=== PATIENT | male | born 1945 | race Caucasian/White ===

== ENCOUNTER 2020-05-24 04:29 | Emergency (ER) | payer MEDICARE, OTHER ==
[~2020-05-24] VITALS: Ht 167.6 cm; Wt 70.5 kg
[~2020-05-24 04:29] MED LIST: ALLOPURINOL100 MG PO; CALCIUM CHELAT200 MG PO; CARDI-OMEGA1000 MG PO; CHILDREN'S ASPI81 M1 PO; DUO-KAPS1 CAP PO; FLOMAX0.4 MG PO; LOSARTAN POTAS100 MG PO; NITROSTAT0.4 MG SL; PRILOSEC 20MG20 MG PO; SIMVASTATIN20 MG PO
[2020-05-24 04:57] LABS: HEMATOCRIT 36.1 % (42.0-52.0); LYMPH# 2.2 (1.50-4.00); MEAN CELL VOLUME 89 fl (78-100); MEAN CORPUSCULAR HEMOGLOBIN 30 pg (27-31); MEAN CORPUSCULAR HGB CONC 33 g/dL (33-37); MEAN PLATELET VOLUME 9.6 fl (7.4-10.4); MONO # 0.9 (0.20-0.80); NEU # 4.3 (1.40-6.50); PLATELET COUNT 236 K/mm3 (130-400); RED BLOOD COUNT 4.04 M/mm3 (4.20-5.60); RED CELL DISTRIBUTION WIDTH 13.1 % (11.5-14.5); WHITE BLOOD COUNT 8.1 K/mm3 (4.8-10.8)
[2020-05-24 04:58] LABS: EOS # 0.7 (0.04-0.40); EOS % 8.2 % (0.0-4.0)
[2020-05-24 05:03] LABS: POTASSIUM 3.9 mmol/L (3.5-5.1)
[2020-05-24 05:04] LABS: CALCIUM 8.6 mg/dL (8.3-10.5)
[2020-05-24 05:06] LABS: TOTAL PROTEIN 6.7 g/dL (6.2-8.1)
[2020-05-24 05:07] LABS: TOTAL BILIRUBIN 0.3 mg/dL (0.2-1.2)
[2020-05-24 06:20] VITALS: BP 151/73
[2020-05-24] MEDS ORDERED: FLONASE ALLERG9.9 ML NS (07:24)
[2020-05-24] MEDS ORDERED: ZYRTEC10 M3 PO (07:24)
== END 2020-05-24 06:20 | disposition home or self-care (01) ==
LOC: ED 04:29
PROVIDERS: Family Medicine
DX: D64.9 Anemia, unspecified (principal); I11.0 Hypertensive heart disease with heart failure; N18.9 Chronic kidney disease, unspecified; R07.89 Other chest pain; K21.9 Gastro-esophageal reflux disease without esophagitis; E78.5 Hyperlipidemia, unspecified; M10.9 Gout, unspecified; Z79.82 Long term (current) use of aspirin

== ENCOUNTER 2024-07-04 18:03 | Emergency (ER) | payer MEDICARE, OTHER ==
[~2024-07-04] VITALS: Ht 180.3 cm; Wt 69.7 kg
[~2024-07-04 18:03] MED LIST changes: -CHILDREN'S ASPI81 M1 PO; +FLONASE ALLERG9.9 ML NS; +GOOD SENSE ASPI81 M1 PO; +ZYRTEC10 M3 PO
[2024-07-04] MEDS ORDERED: Ondansetron 4 MG/2 ML VIAL IV ONE (18:30)
[2024-07-04] MEDS ORDERED: NS 1,000 ML IV ONE (18:30)
[2024-07-04 18:45] LABS: BASO # 0.01 K/mm3 (0.02-0.10); EOS # 0.05 K/mm3 (0.04-0.40); EOS % 0.8 % (0.0-4.0); HEMATOCRIT 37.4 % (42.0-52.0); HEMOGLOBIN 12.8 g/dL (13.5-18.0); LYMPH# 1.03 K/mm3 (1.50-4.00); MEAN CELL VOLUME 88 fl (78-100); MEAN CORPUSCULAR HEMOGLOBIN 30 pg (27-31); MEAN CORPUSCULAR HGB CONC 34 g/dL (33-37); MEAN PLATELET VOLUME 9.7 fl (7.4-10.4); MONO # 0.88 K/mm3 (0.20-0.80); NEU # 4.05 K/mm3 (1.40-6.50); PLATELET COUNT 199 K/mm3 (130-400); RED BLOOD COUNT 4.23 M/mm3 (4.20-5.60); RED CELL DISTRIBUTION WIDTH 12.8 % (11.5-14.5)
[2024-07-04] MEDS ORDERED: METOPROLOL SUCC50 M1 PO (18:46)
[2024-07-04] MEDS ORDERED: CENTRUM SILVER1 EAC4 PO (18:47)
[2024-07-04] MEDS ORDERED: IRON159 M1 PO (18:48)
[2024-07-04] MEDS ORDERED: TYLENOL PM PO (18:49)
[2024-07-04] MEDS ORDERED: STOOL SOFTENER (18:51)
[2024-07-04 18:53] LABS: CALCIUM 9.8 mg/dL (8.3-10.5)
[2024-07-04 18:55] LABS: TOTAL PROTEIN 6.8 g/dL (6.2-8.1)
[2024-07-04 18:56] LABS: TOTAL BILIRUBIN 0.5 mg/dL (0.2-1.2)
[2024-07-04 19:04] LABS: URINE APPEARANCE SLIGHTLY CLOUDY (CLEAR); URINE BILIRUBIN NEGATIVE (NEGATIVE); URINE BLOOD 1+ (NEGATIVE); URINE COLOR YELLOW (YELLOW); URINE GLUCOSE NEGATIVE (NEGATIVE); URINE KETONE NEGATIVE (NEGATIVE); URINE LEUKOCYTE ESTERASE NEGATIVE (NEGATIVE); URINE NITRATE NEGATIVE (NEGATIVE); URINE PROTEIN(semi-quant) 3+ (NEGATIVE)
[2024-07-04 19:09] LABS: URINE MUCUS PRESENT (NOT PRESENT)
[2024-07-04] MEDS ORDERED: ZOFRAN ODT4 MG PO (19:28)
[2024-07-04] MEDS ORDERED: Home Ondansetron ODT 4 MG #2 ODT/PACK PO ONE (19:30)
[2024-07-04 19:46] VITALS: BP 140/62
== END 2024-07-04 19:47 | disposition home or self-care (01) ==
LOC: ED 18:03
PROVIDERS: Family Medicine
DX: R11.2 Nausea with vomiting, unspecified (principal); R79.89 Other specified abnormal findings of blood chemistry
CPT/HCPCS: J2405; J7030